=== PATIENT | female | born 1960 | race Caucasian/White ===

== ENCOUNTER 2019-04-23 13:18 | Inpatient (IN) | payer SELFPAY ==
[2019-04-23] MEDS ORDERED: KETOROLAC TROMETHAMINE INJ/PF 30 MG/1 ML SDV IV ONE (13:57)
[2019-04-23] MEDS ORDERED: ONDANSETRON HCL INJ/PF 4 MG/2 ML SDV IV ONE (13:58)
[2019-04-23] MEDS ORDERED: NORMAL SALINE 1000 ML 1,000 ML IV ONE (13:58)
--- NOTE | 2019-04-23 14:02 | ER Document Report ---
ED General - General Chief Complaint: Chest Pain Stated Complaint: CHEST PAIN/VOMITING/DIFFICULTY BREATHING Time Seen by Provider: 04/23/19 13:46 Primary Care Provider: ALFRED CHAPIN CNM [CERTIFIED NURSE PARTS EXPEDITER] - Follow up as needed - HPI Notes: 58-year-old female not currently under the care of physician taking no regular medications now presenting with 1 week history of cough generalized myalgias rachel sea vomiting and progressive weakness. He complains this morning of worsening cramping pain over her anterior chest area. She drove herself to the hospital. She notes that her has had similar symptoms over the past 1 week. She believes she may have run fever intermittently but has not taken her temperature at home. Onset 1 week ago. Duration persistent. Quality: Generalized cramping pain Location generalized. Pain most severe in the anterior chest area now. Relieving factors: None Severity: 8/10. Pertinent prior history: Patient is a former smoker. She denies any history of serious illnesses in the past. She says she does not believe she is ever had an EKG before today. - Related Data Allergies/Adverse Reactions: codeine [Codeine] Allergy (Verified 04/23/19 13:45) VOMITING Past Medical History - Social History Smoking Status: Former Smoker Cigarette use (# per day): No Chew tobacco use (# tins/day): No Frequency of alcohol use: None Drug Abuse: None Lives with: Family Family History: Reviewed & Not Pertinent - Medical History Medical History: Negative - Past Medical History Cardiac Medical History: Denies: Hx Coronary Artery Disease, Hx Heart Attack, Hx Hypertension Pulmonary Medical History: Denies: Hx Asthma, Hx Bronchitis, Hx COPD, Hx Pneumonia Neurological Medical History: Denies: Hx Cerebrovascular Accident, Hx Seizures Musculoskeletal Medical History: Denies Hx Arthritis Past Surgical History: Denies: Hx Hysterectomy, Hx Pacemaker Review of Systems - Review of Systems Notes: Constitutional: As per HPI. HENT: Negative for sore throat. Eyes: Negative for visual changes. Cardiovascular: As per HPI. Respiratory: Nonproductive cough. Gastrointestinal: Persistent nausea and vomiting. Genitourinary: Reports passing some blood in her urine a couple days ago.. Musculoskeletal: Diffuse musculoskeletal cramping. Skin: Negative for rash. Neurological: Headache and generalized weakness. 10 point ROS negative except as marked above and in HPI. Physical Exam - Vital signs Vitals: Pulse Ox 97 04/23/19 13:36 Notes: GENERAL: Somewhat obese middle-aged female who appears acutely ill and diaphoretic. She is warm to touch and review of vital signs shows that she is febrile. SKIN: Skin is pale. HEAD: Normocephalic atraumatic. EYES: Eyes appear mildly sunken consistent with dehydration. PERRLA. Conjunctivae and sclerae clear. EARS: CANALS AND TMS CLEAR. NOSE: CLEAR. MOUTH: Tacky mucosa. Good dentition. No stridor or edema. No drooling. Throat: Clear. NECK: Supple. No masses or thyromegaly. No adenopathy. Carotids 2+ without bruits. No JVD. BACK: Symmetrical without tenderness. CHEST: Diffuse anterior chest wall tenderness. Respirations unlabored. Scattered rhonchi bilaterally. HEART: Regular rhythm. No murmur gallop or rub. ABDOMEN: Mild epigastric tenderness without masses, organomegaly or rebound. Bowel sounds normally active. No bruits. GENITALIA: Deferred. EXTREMITIES: No edema. No calf tenderness. Cap refill less than 1.5 seconds. Dorsalis pedis and posterior tibial pulses 3+ and symmetrical. NEUROLOGICAL: GCS 15. Alert and oriented x3. Normal gait. Fluent speech. Cranial nerves II through XII intact. Sensorimotor and cerebellar normal. Normal tone. PSYCHIATRIC: Very anxious. Course - Re-evaluation Re-evalutation: 04/23/19 16:55 Patient was initially given normal saline IV bolus. Look suspicious for sepsis. I think left bundle branch block is probably old although I do not have any prior tracing for comparison. Her urine shows large amount of pyuria. White count was mildly elevated. Chemistries remarkable for hyperbilirubinemia. CT scan abdomen pelvis with contrast shows edema of the left kidney and perinephric stranding consistent with pyelonephritis. Patient empirically received IV Zosyn. She feels much better. Her lactate level is normal. I think this was an early sepsis. Findings have been discussed with Dr. Henson who will admit at this time. - Vital Signs Vital signs: Temp Pulse Resp BP Pulse Ox 102.8 F H 26 H 157/70 H 97 04/23/19 14:04 04/23/19 13:42 04/23/19 13:42 04/23/19 13:42 - Laboratory Result Diagrams: 04/23/19 13:48 04/23/19 13:48 Laboratory results interpreted by me: 04/23/19 04/23/19 04/23/19 13:48 13:48 14:10 WBC 12.6 H Lymphocytes % (Manual) 11 L Abs Neuts (Manual) 9.8 H Carbon Dioxide 20 L Est GFR (MDRD) Non-Af 58 L Glucose 158 H Total Bilirubin 4.2 H Direct Bilirubin 2.4 H Alkaline Phosphatase 152 H Urine Protein >=500 H Urine Blood LARGE H Urine Nitrite POSITIVE H Urine Bilirubin SMALL H Urine Urobilinogen 4.0 H Ur Leukocyte Esterase MODERATE H Urine Ascorbic Acid 40 H - Diagnostic Test Radiology reviewed: Reports reviewed - EKG Interpretation by Me EKG shows normal: Sinus rhythm Rate: Tachycardia [place]/QRS: LBBB Additional EKG results interpreted by me: 04/23/19 16:54 No old EKG for comparison. Discharge - Discharge Clinical Impression: Acute pyelonephritis Sepsis Qualifiers: Sepsis type: sepsis due to unspecified organism Sepsis acute organ dysfunction status: with acute organ dysfunction Severe sepsis shock status: without septic shock Condition: Good Disposition: ADMITTED INPATIENT Admitting Provider: [facility]ad (Hospitalist) Unit Admitted: Medical Floor Referrals: ALFRED CHAPIN CNM [CERTIFIED NURSE PARTS EXPEDITER] - Follow up as needed
--- NOTE | 2019-04-23 14:20 | RADIOLOGY REPORT (SQ) ---
EXAM DESCRIPTION: CHEST SINGLE VIEW COMPLETED DATE/TIME: 04/23/2019 2:03 pm REASON FOR STUDY: t1 cp COMPARISON: None. NUMBER OF VIEWS: One view. TECHNIQUE: Single frontal radiographic view of the chest acquired. LIMITATIONS: None. FINDINGS: LUNGS AND PLEURA: No opacities, masses or pneumothorax. No pleural effusion. MEDIASTINUM AND HILAR STRUCTURES: No masses. Contour normal. HEART AND VASCULAR STRUCTURES: Heart normal in size. Normal vasculature. BONES: No acute findings. HARDWARE: None in the chest. OTHER: No other significant finding. IMPRESSION: NO SIGNIFICANT RADIOGRAPHIC FINDING IN THE CHEST. TECHNICAL DOCUMENTATION: JOB ID: [id number] [employer]- All Rights Reserved Reading location - IP/workstation name: [email or web address]
[2019-04-23 14:28] LABS: ALBUMIN 3.5 g/dL (3.5-5.0); ALKALINE PHOSPHATASE 152 U/L (38-126); ANION GAP 14 (5-19); ASPARTATE AMINO TRANSFERASE 30 U/L (14-36); BILIRUBIN,DIRECT 2.4 mg/dL (0.0-0.4); BILIRUBIN,TOTAL 4.2 mg/dL (0.2-1.3); BLOOD UREA NITROGEN 17 mg/dL (7-20); CARBON DIOXIDE 20 mmol/L (22-30); CHLORIDE 105 mmol/L (98-107); CREATINE KINASE 44 U/L (30-135); GLUCOSE 158 mg/dL (75-110); POTASSIUM 4.2 mmol/L (3.6-5.0); TOTAL PROTEIN 6.6 g/dL (6.3-8.2)
[2019-04-23 14:29] LABS: HEMATOCRIT 36.4 % (36.0-47.0); PLATELET COUNT 233 10^3/uL (150-450); RED CELL DISTRIBUTION WIDTH 12.9 % (11.5-14.0); WHITE BLOOD COUNT 12.6 10^3/uL (4.0-10.5)
[2019-04-23 14:36] LABS: MEAN CORPUSCULAR HEMOGLOBIN 32.6 pg (27.0-33.4); MEAN CORPUSCULAR HGB CONC 35.8 g/dL (32.0-36.0); MEAN CORPUSCULAR VOLUME 91 fl (80-97); RED BLOOD COUNT 3.99 10^6/uL (3.72-5.28)
[2019-04-23 14:40] LABS: APPEARANCE,URINE CLOUDY; BILIRUBIN,URINE SMALL (NEGATIVE); COLOR,URINE AMBER; GLUCOSE, URINE NEGATIVE (NEGATIVE); KETONES,URINE NEGATIVE (NEGATIVE); LEUKOCYTE ESTERASE,URINE MODERATE (NEGATIVE); NITRITE,URINE POSITIVE (NEGATIVE); PROTEIN,URINE >=500 mg/dL (NEGATIVE); URINE SPECIFIC GRAVITY 1.022
[2019-04-23 14:46] LABS: ABSOLUTE LYMPHOCYTES# (MANUAL) 1.4 10^3/uL (0.5-4.7); ABSOLUTE MONOCYTES # (MANUAL) 1.4 10^3/uL (0.1-1.4); BASOPHILS % (MANUAL) 0 % (0-2); EOSINOPHILS % (MANUAL) 0 % (0-6); LYMPHOCYTES % (MANUAL) 11 % (13-45); MONOCYTES % (MANUAL) 11 % (3-13); SEGMENTED NEUTROPHILS % (MAN) 78 % (42-78); TOTAL CELLS COUNTED 100
[2019-04-23 14:50] LABS: PLATELET COMMENT ADEQUATE; ROULEAUX 1+
[2019-04-23 14:51] LABS: CREATINE KINASE MB < 0.22 ng/mL (<4.55); TROPONIN I < 0.012 ng/mL
[2019-04-23] MEDS ORDERED: PIPERACILLIN/TAZOBACTAM 3.375 GM VIAL IV ONE (15:16)
[2019-04-23 15:41] LABS: A TYPE INFLUENZA AG NEGATIVE (NEGATIVE); B INFLUENZA AG NEGATIVE (NEGATIVE)
--- NOTE | 2019-04-23 16:10 | RADIOLOGY REPORT (SQ) ---
EXAM DESCRIPTION: CT ABD/PELVIS WITH IV ONLY COMPLETED DATE/TIME: 04/23/2019 3:58 pm REASON FOR STUDY: RUQ pain, hematuria COMPARISON: None. TECHNIQUE: CT scan of the abdomen and pelvis performed using helical scanning technique with dynamic intravenous contrast injection. No oral contrast. Images reviewed with lung, soft tissue, and bone windows. Reconstructed coronal and sagittal MPR images reviewed. Delayed images for evaluation of the urinary system also acquired. All images stored on PACS. All CT scanners at this facility use dose modulation, iterative reconstruction, and/or weight based d osing when appropriate to reduce radiation dose to as low as reasonably achievable (ALARA). [facility]: Dose Right [facility]: CareDose [facility]: Dose Right [facility]: Teradose 4D [facility]: CEED Tech CONTRAST TYPE AND DOSE: 100 mL Omnipaque 350 iodinated contrast IV RENAL FUNCTION: GFR > 60. RADIATION DOSE: CT Rad equipment meets quality standard of care and radiation dose reduction techniq ues were employed. CTDIvol: 20.8 - 21.1 mGy. DLP: 2269 mGy-cm.. LIMITATIONS: None. FINDINGS: LOWER CHEST: No significant findings. No nodules or infiltrates. LIVER: Normal size. No masses. No dilated ducts. SPLEEN: Normal size. No focal lesions. PANCREAS: No masses. No significant calcifications. No adjacent inflammation or peripancreatic fluid collections. Pancreatic duct not dilated. GALLBLADDER: No identified stones by CT criteria. No inflammatory changes to suggest cholecystitis. ADRENAL GLANDS: No significant masses or asymmetry. RIGHT KIDNEY AND URETER: No solid masses. No significant calcifications. No hydronephrosis or hyd roureter. LEFT KIDNEY AND URETER: No solid masses. There is a heterogeneous nephrogram of the superior pole of the left kidney with adjacent perinephric fat stranding. No significant calcifications. No hydron ephrosis or hydroureter. AORTA AND VESSELS: No aneurysm. No dissection. Renal arteries, SMA, celiac without stenosis. RETROPERITONEUM: No retroperitoneal adenopathy, hemorrhage or masses. BOWEL AND PERITONEAL CAVITY: No masses or inflammatory changes. No free fluid or peritoneal masses. APPENDIX: Normal. PELVIS: No mass. No free fluid. Status post hysterectomy. There is thickening and edematous appear ance of the urinary bladder wall. ABDOMINAL WALL: No masses. No hernias. BONES: No significant or acute findings. OTHER: No other significant finding. IMPRESSION: There is a heterogeneous nephrogram of the superior pole of the left kidney with adjacen t perinephric fat stranding. Thickening and edematous appearance of the urinary bladder. Findings a re consistent with cystitis and pyelonephritis. TECHNICAL DOCUMENTATION: JOB ID: [id number] Quality ID # [id number]: Final reports with documentation of one or more dose reduction techniques (e.g., Au tomated exposure control, adjustment of the mA and/or kV according to patient size, use of iterative reconstruction technique) 2010 [employer]- All Rights Reserved Reading location - IP/workstation name: [email or web address]
--- NOTE | 2019-04-23 17:59 | PDOC H&P ---
History of Present Illness Patient complains of: chills, abdominal cramps History of Present Illness: SAVANNA PEREZ is a 58 year old female with no significant past medical history, not on home medications and does not see a regular PCP who came in because of chills and abdominal cramps. Patient says that she is been having on and off chills and subjective fever in the past week. She also reports associated dysuria and urinary frequency. She says that she also had urinary urgency and had a few episodes of slightly blood- tinged urine. She complained of hypogastric cramping as well. She also reported of associated body pains, myalgias and chest tightness. Past Medical History Cardiac Medical History: Denies: Coronary Artery Disease, Myocardial Infarction, Hypertension Pulmonary Medical History: Denies: Asthma, Bronchitis, Chronic Obstructive Pulmonary Disease (COPD), Pneumonia Neurological Medical History: Denies: Seizures Musculoskeltal Medical History: Denies: Arthritis Hematology: Denies: Anemia Past Surgical History Past Surgical History: Denies: Hysterectomy, Pacemaker Social History Lives with: Family Smoking Status: Former Smoker Family History Family History: Reviewed & Not Pertinent Parental Family History Reviewed: Yes - No premature CAD Children Family History Reviewed: No Sibling(s) Family History Reviewed.: No Medication/Allergy Allergies/Adverse Reactions: codeine [Codeine] Allergy (Verified 04/23/19 13:45) VOMITING Review of Systems All systems: reviewed and no additional remarkable complaints except as stated - As mentioned in HPI Physical Exam Vital Signs: Temp Pulse Resp BP Pulse Ox 102.8 F H 26 H 157/70 H 97 04/23/19 14:04 04/23/19 13:42 04/23/19 13:42 04/23/19 13:42 Intake & Output 04/22/19 04/23/19 04/24/19 06:59 06:59 06:59 Intake Total 1000 Balance 1000 Weight 247 lb 2.211 oz General appearance: PRESENT: no acute distress, well-developed, well-nourished Head exam: PRESENT: atraumatic, normocephalic Eye exam: PRESENT: conjunctiva pink, EOMI, PERRLA. ABSENT: scleral icterus Ear exam: PRESENT: normal external ear exam Mouth exam: PRESENT: moist, tongue midline Neck exam: ABSENT: carotid bruit, JVD, lymphadenopathy, thyromegaly Respiratory exam: PRESENT: clear to auscultation loco. ABSENT: rales, rhonchi, w heezes Cardiovascular exam: PRESENT: RRR. ABSENT: diastolic murmur, rubs, systolic murmur Pulses: PRESENT: normal dorsalis pedis pul GI/Abdominal exam: PRESENT: normal bowel sounds, soft, tenderness - Mild CVA tenderness. ABSENT: distended, guarding, mass, organolmegaly, rebound Rectal exam: PRESENT: deferred Extremities exam: PRESENT: full ROM. ABSENT: calf tenderness, clubbing, pedal edema Neurological exam: PRESENT: alert, awake, oriented to person, oriented to place, oriented to time, oriented to situation, CN II-XII grossly intact. ABSENT: motor sensory deficit Results Laboratory Results: 04/23/19 13:48 04/23/19 13:48 04/23/19 04/23/19 04/23/19 13:48 13:48 13:48 WBC 12.6 H RBC 3.99 Hgb 13.0 Hct 36.4 MCV 91 MCH 32.6 MCHC 35.8 RDW 12.9 Plt Count 233 Seg Neutrophils % Not Reportable Sodium 139.1 Potassium 4.2 Chloride 105 Carbon Dioxide 20 L Anion Gap 14 BUN 17 Creatinine 0.99 Est GFR ( Amer) > 60 Glucose 158 H Lactic Acid 1.1 Calcium 9.0 Total Bilirubin 4.2 H AST 30 Alkaline Phosphatase 152 H Total Protein 6.6 Albumin 3.5 Urine Color Urine Appearance Urine pH Ur Specific [place] Urine Protein Urine Glucose (UA) Urine Ketones Urine Blood Urine Nitrite Ur Leukocyte Esterase Urine WBC (Auto) Urine RBC (Auto) 04/23/19 14:10 WBC RBC Hgb Hct MCV MCH MCHC RDW Plt Count Seg Neutrophils % Sodium Potassium Chloride Carbon Dioxide Anion Gap BUN Creatinine Est GFR ( Amer) Glucose Lactic Acid Calcium Total Bilirubin AST Alkaline Phosphatase Total Protein Albumin Urine Color DEMETRICE Urine Appearance CLOUDY Urine pH 5.0 Ur Specific [place] 1.022 Urine Protein >=500 H Urine Glucose (UA) NEGATIVE Urine Ketones NEGATIVE Urine Blood LARGE H Urine Nitrite POSITIVE H Ur Leukocyte Esterase MODERATE H Urine WBC (Auto) >182 Urine RBC (Auto) 87 04/23/19 04/23/19 13:48 13:48 Creatine Kinase 44 CK-MB (CK-2) < 0.22 Troponin I < 0.012 Impressions: Chest X-Ray 04/23/19 13:36 IMPRESSION: NO SIGNIFICANT RADIOGRAPHIC FINDING IN THE CHEST. Abdomen/Pelvis CT 04/23/19 15:17 IMPRESSION: There is a heterogeneous nephrogram of the superior pole of the left kidney with adjacent perinephric fat stranding. Thickening and edematous appearance of the urinary bladder. Findings are consistent with cystitis and pyelonephritis. Assessment and Plan - Diagnosis (1) Sepsis Qualifiers: Sepsis type: sepsis due to unspecified organism Sepsis acute organ dysfunction status: with acute organ dysfunction Severe sepsis shock status: without septic shock Is this a current diagnosis for this admission?: Yes Plan: Secondary to acute pyelonephritis. Patient did present with tachycardia and fever. She also had leukocytosis and elevated liver enzymes. He was given IV here. We will continue IV fluids. We will have patient on Zosyn. Blood and urine cultures ordered. (2) Acute pyelonephritis Is this a current diagnosis for this admission?: Yes Plan: As per #1. - Time Time Spent with patient: 25-34 minutes
--- NOTE | 2019-04-23 17:59 | ADVANCED CARE ---
- Diagnosis (1) Acute pyelonephritis Diagnosis Current: Yes (2) Sepsis Diagnosis Current: Yes Resuscitation Status: Do Not Resuscitate Discussion: Discussed with patient and at bedside. Patient says that she is a DNR/DNI and does not want to receive chest compressions, defibrillation or mechanical ventilation if the need arises. She says that her , Migue is her surrogate medical decision maker.
[2019-04-23] MEDS: NORMAL SALINE 1000 ML 1,000 ML IV PRN (18:44)
[2019-04-23] MEDS: MORPHINE SULFATE 10 MG/ML INJ IV PRN (19:46)
[2019-04-23] MEDS: ACETAMINOPHEN 325 MG TABLET PO PRN (19:47)
[2019-04-23] MEDS ORDERED: INFLUENZA QUAD (6MOS+) 2019-20 VAC 0.5 ML SYR IM ONE (20:24)
[2019-04-23] MEDS: HEPARIN SOD (PORCINE) 5,000 UNIT/ML 1 ML VIAL SUBCUT SCH (21:46)
[2019-04-23] MEDS: PIPERACILLIN SODIUM/TAZOBACTAM 3.375 GM in NORMAL SALINE 100 ML IV SCH (21:47)
--- NOTE | 2019-04-24 00:02 | EKG REPORT ---
SEVERITY:- ABNORMAL ECG - SINUS TACHYCARDIA LEFT BUNDLE BRANCH BLOCK : Confirmed by: Lisa Cook 24-Apr-2019 00:02:31
[2019-04-24] MEDS: NORMAL SALINE 1000 ML 1,000 ML IV PRN ×3 (01:41→19:00)
[2019-04-24] MEDS: PIPERACILLIN SODIUM/TAZOBACTAM 3.375 GM in NORMAL SALINE 100 ML IV SCH ×4 (02:59→22:16)
[2019-04-24] MEDS: MORPHINE SULFATE 10 MG/ML INJ IV PRN ×2 (03:08→09:39)
[2019-04-24] MEDS: ACETAMINOPHEN 325 MG TABLET PO PRN ×2 (03:09→15:15)
[2019-04-24 06:02] LABS: ALBUMIN 2.7 g/dL (3.5-5.0); ALKALINE PHOSPHATASE 118 U/L (38-126); ANION GAP 10 (5-19); ASPARTATE AMINO TRANSFERASE 25 U/L (14-36); BILIRUBIN,DIRECT 2.6 mg/dL (0.0-0.4); BILIRUBIN,TOTAL 3.5 mg/dL (0.2-1.3); BLOOD UREA NITROGEN 17 mg/dL (7-20); CALCIUM 7.9 mg/dL (8.4-10.2); CARBON DIOXIDE 21 mmol/L (22-30); CHLORIDE 106 mmol/L (98-107); GLUCOSE 121 mg/dL (75-110); POTASSIUM 3.7 mmol/L (3.6-5.0); TOTAL PROTEIN 5.4 g/dL (6.3-8.2)
[2019-04-24 06:16] LABS: HEMATOCRIT 32.2 % (36.0-47.0); PLATELET COUNT 209 10^3/uL (150-450); RED CELL DISTRIBUTION WIDTH 13.4 % (11.5-14.0); WHITE BLOOD COUNT 10.6 10^3/uL (4.0-10.5)
[2019-04-24 06:17] LABS: MEAN CORPUSCULAR VOLUME 91 fl (80-97)
[2019-04-24 06:18] LABS: MEAN CORPUSCULAR HGB CONC 34.2 g/dL (32.0-36.0)
[2019-04-24 06:43] LABS: ABSOLUTE LYMPHOCYTES# (MANUAL) 1.8 10^3/uL (0.5-4.7); ABSOLUTE MONOCYTES # (MANUAL) 1.2 10^3/uL (0.1-1.4); BASOPHILS % (MANUAL) 1 % (0-2); EOSINOPHILS % (MANUAL) 0 % (0-6); LYMPHOCYTES % (MANUAL) 15 % (13-45); MONOCYTES % (MANUAL) 11 % (3-13); SEGMENTED NEUTROPHILS % (MAN) 71 % (42-78); TOTAL CELLS COUNTED 100
[2019-04-24 06:44] LABS: PLATELET COMMENT ADEQUATE; RBC MORPHOLOGY COMMENT NORMO-CYTIC/CHROMIC; TOXIC VACUOLATION PRESENT
[2019-04-24 06:45] LABS: RED BLOOD COUNT 3.55 10^6/uL (3.72-5.28)
[2019-04-24] MEDS: HEPARIN SOD (PORCINE) 5,000 UNIT/ML 1 ML VIAL SUBCUT SCH ×2 (09:39→22:16)
[2019-04-24] MEDS ORDERED: ONDANSETRON HCL INJ/PF 4 MG/2 ML SDV IV PRN (10:50)
[2019-04-24] MEDS ORDERED: MORPHINE SULFATE 10 MG/ML INJ IV PRN (11:00)
--- NOTE | 2019-04-24 14:34 | PDOC PROGRESS REPORT ---
Subjective Progress Note for:: 04/24/19 Subjective:: This is a 58-year-old female who was admitted for sepsis secondary to acute pyelonephritis. No acute event overnight. This morning, she still complained of occasional abdominal cramping and CVA tenderness. Denies chest pain or shortness of breath. She had a fever of 101.7 last night. Reason For Visit: SEPSIS,ACUTE PYELONEPHRITIS Physical Exam Vital Signs: Temp Pulse Resp BP Pulse Ox 98.0 F 89 18 114/60 97 04/24/19 12:05 04/24/19 12:05 04/24/19 12:05 04/24/19 12:05 04/24/19 12:05 Intake & Output 04/23/19 04/24/19 04/25/19 06:59 06:59 06:59 Intake Total 2741 1100 Output Total 100 Balance 2641 1100 Weight 216 lb 7.903 oz General appearance: PRESENT: no acute distress, well-developed, well-nourished Head exam: PRESENT: atraumatic, normocephalic Eye exam: PRESENT: conjunctiva pink, EOMI, PERRLA. ABSENT: scleral icterus Ear exam: PRESENT: normal external ear exam Mouth exam: PRESENT: moist, tongue midline Neck exam: ABSENT: carotid bruit, JVD, lymphadenopathy, thyromegaly Respiratory exam: PRESENT: clear to auscultation loco. ABSENT: rales, rhonchi, wheezes Cardiovascular exam: PRESENT: RRR. ABSENT: diastolic murmur, rubs, systolic murmur Pulses: PRESENT: normal dorsalis pedis pul GI/Abdominal exam: PRESENT: normal bowel sounds, soft, tenderness - +CVA te nderness. ABSENT: distended, guarding, mass, organolmegaly, rebound Rectal exam: PRESENT: deferred Extremities exam: PRESENT: full ROM. ABSENT: calf tenderness, clubbing, pedal edema Neurological exam: PRESENT: alert, awake, oriented to person, oriented to place, oriented to time, oriented to situation, CN II-XII grossly intact. ABSENT: motor sensory deficit Results Laboratory Results: 04/24/19 04:24 04/24/19 04:24 04/23/19 04/23/19 04/23/19 13:48 13:48 13:48 WBC 12.6 H RBC 3.99 Hgb 13.0 Hct 36.4 MCV 91 MCH 32.6 MCHC 35.8 RDW 12.9 Plt Count 233 Seg Neutrophils % Not Reportable Sodium 139.1 Potassium 4.2 Chloride 105 Carbon Dioxide 20 L Anion Gap 14 BUN 17 Creatinine 0.99 Est GFR ( Amer) > 60 Glucose 158 H Lactic Acid 1.1 Calcium 9.0 Total Bilirubin 4.2 H AST 30 Alkaline Phosphatase 152 H Total Protein 6.6 Albumin 3.5 Urine Color Urine Appearance Urine pH Ur Specific [place] Urine Protein Urine Glucose (UA) Urine Ketones Urine Blood Urine Nitrite Ur Leukocyte Esterase Urine WBC (Auto) Urine RBC (Auto) 04/23/19 04/24/19 04/24/19 14:10 04:24 04:24 WBC 10.6 H RBC 3.55 L Hgb 11.0 L Hct 32.2 L MCV 91 MCH 31.0 MCHC 34.2 RDW 13.4 Plt Count 209 Seg Neutrophils % Not Reportable Sodium 137.4 Potassium 3.7 Chloride 106 Carbon Dioxide 21 L Anion Gap 10 BUN 17 Creatinine 1.02 Est GFR ( Amer) > 60 Glucose 121 H Lactic Acid Calcium 7.9 L Total Bilirubin 3.5 H AST 25 Alkaline Phosphatase 118 Total Protein 5.4 L Albumin 2.7 L Urine Color DEMETRICE Urine Appearance CLOUDY Urine pH 5.0 Ur Specific [place] 1.022 Urine Protein >=500 H Urine Glucose (UA) NEGATIVE Urine Ketones NEGATIVE Urine Blood LARGE H Urine Nitrite POSITIVE H Ur Leukocyte Esterase MODERATE H Urine WBC (Auto) >182 Urine RBC (Auto) 87 04/23/19 13:48 Blood Blood Culture (PCR) - Final 04/23/19 04/23/19 04/23/19 13:48 13:48 17:22 Creatine Kinase 44 CK-MB (CK-2) < 0.22 Troponin I < 0.012 < 0.012 Impressions: Chest X-Ray 04/23/19 13:36 IMPRESSION: NO SIGNIFICANT RADIOGRAPHIC FINDING IN THE CHEST. Abdomen/Pelvis CT 04/23/19 15:17 IMPRESSION: There is a heterogeneous nephrogram of the superior pole of the left kidney with adjacent perinephric fat stranding. Thickening and edematous appearance of the urinary bladder. Findings are consistent with cystitis and pyelonephritis. Assessment and Plan - Diagnosis (1) Sepsis Qualifiers: Sepsis type: sepsis due to unspecified organism Sepsis acute organ dysfunction status: with acute organ dysfunction Severe sepsis shock status: without septic shock Is this a current diagnosis for this admission?: Yes Plan: Secondary to acute pyelonephritis. Patient did present with tachycardia and fever. She also had leukocytosis and elevated liver enzymes. C Continue IV fluids. Continue Zosyn. Blood cultures growing gram-positive rods 1/2. Urine cultures growing gram-negative rods. (2) Acute pyelonephritis Is this a current diagnosis for this admission?: Yes Plan: As per #1. - Time Time Spent with patient: 25-34 minutes
[2019-04-24] MEDS: KETOROLAC TROMETHAMINE INJ/PF 30 MG/1 ML SDV IV PRN (23:47)
[2019-04-25] MEDS: PIPERACILLIN SODIUM/TAZOBACTAM 3.375 GM in NORMAL SALINE 100 ML IV SCH ×3 (02:29→15:23)
[2019-04-25] MEDS: NORMAL SALINE 1000 ML 1,000 ML IV PRN ×2 (05:56→15:22)
[2019-04-25 07:37] LABS: HEPATITS B SURFACE ANTIGEN Negative (Negative)
[2019-04-25] MEDS: HEPARIN SOD (PORCINE) 5,000 UNIT/ML 1 ML VIAL SUBCUT SCH ×2 (09:47→21:42)
[2019-04-25 10:54] LABS: HEPATITIS C VIRUS ANTIBODY <0.1 s/co ratio (0.0-0.9)
--- NOTE | 2019-04-25 11:45 | RADIOLOGY REPORT (SQ) ---
EXAM DESCRIPTION: CHEST SINGLE VIEW COMPLETED DATE/TIME: 04/25/2019 11:36 am REASON FOR STUDY: shortness of breath COMPARISON: 04/23/2019 EXAM PARAMETERS: NUMBER OF VIEWS: One view. TECHNIQUE: Single frontal radiographic view of the chest acquired. RADIATION DOSE: NA LIMITATIONS: None. FINDINGS: LUNGS AND PLEURA: No opacities, masses or pneumothorax. No pleural effusion. MEDIASTINUM AND HILAR STRUCTURES: No masses. Contour normal. HEART AND VASCULAR STRUCTURES: Heart size is borderline. No pulmonary edema. BONES: No acute findings. HARDWARE: None in the chest. OTHER: No other significant finding. IMPRESSION: Borderline cardiomegaly without karina pulmonary edema. TECHNICAL DOCUMENTATION: JOB ID: [id number] [employer]- All Rights Reserved Reading location - IP/workstation name: [email or web address]
--- NOTE | 2019-04-25 15:21 | RADIOLOGY REPORT (SQ) ---
EXAM DESCRIPTION: NM LUNG VENT/PERF SCAN COMPLETED DATE/TIME: 04/25/2019 3:08 pm REASON FOR STUDY: shortness of breath COMPARISON: Chest radiograph, 04/25/2019 RADIONUCLIDE AND DOSE: 5.29 millicuries TC-99m MAA Intravenous 30.2 millicuries TC-99m DTPA Inhaled aerosol TECHNIQUE: Eight views of the lungs acquired post ventilation of DTPA aerosol. Eight matching views of the lungs acquired following injection of MAA. LIMITATIONS: None. FINDINGS: VENTILATION: Mild bronchial clumping. Otherwise symmetric and homogeneous distribution of DTPA aerosol during ventilatory phase. No significant areas of photopenia. PERFUSION: Perfusion images with normal homogenous activity and no wedge-shaped or segmental defects. No ventilation-perfusion mismatches. OTHER: Cardiomegaly. IMPRESSION: Very low probability for pulmonary embolism by modified PIOPED criteria (PE absent). TECHNICAL DOCUMENTATION: JOB ID: [id number] [employer]- All Rights Reserved Reading location - IP/workstation name: [email or web address]
[2019-04-25] MEDS: KETOROLAC TROMETHAMINE INJ/PF 30 MG/1 ML SDV IV PRN (15:35)
--- NOTE | 2019-04-25 16:16 | PDOC PROGRESS REPORT ---
Subjective Progress Note for:: 04/25/19 Subjective:: This is a 58-year-old female who was admitted for sepsis secondary to acute pyelonephritis. 04/24: This morning, she still complained of occasional abdominal cramping and CVA tenderness. Denies chest pain or shortness of breath. She had a fever of 101.7 last night. 04/25: She complained of transient palpitations and shortness of breath early this morning associated with tachycardia. Otherwise no other acute event overnight. No desaturation. No recurrence of fever. She says that overall she feels much better today. She says her abdominal pain and CVA tenderness have significantly improved. Reason For Visit: SEPSIS,ACUTE PYELONEPHRITIS Physical Exam Vital Signs: Temp Pulse Resp BP Pulse Ox 98.2 F 80 17 143/56 H 99 04/25/19 12:54 04/25/19 13:33 04/25/19 12:54 04/25/19 12:54 04/25/19 12:54 Intake & Output 04/24/19 04/25/19 04/26/19 06:59 06:59 06:59 Intake Total 2741 3865 1100 Output Total 100 700 Balance 2641 3165 1100 Weight 216 lb 7.903 oz 222 lb 7.143 oz General appearance: PRESENT: no acute distress, well-developed, well-nourished Head exam: PRESENT: atraumatic, normocephalic Eye exam: PRESENT: conjunctiva pink, EOMI, PERRLA. ABSENT: scleral icterus Ear exam: PRESENT: normal external ear exam Mouth exam: PRESENT: moist, tongue midline Neck exam: ABSENT: carotid bruit, JVD, lymphadenopathy, thyromegaly Respiratory exam: PRESENT: clear to auscultation loco. ABSENT: rales, rhonchi, wheezes Cardiovascular exam: PRESENT: RRR. ABSENT: diastolic murmur, rubs, systolic murmur Pulses: PRESENT: normal dorsalis pedis pul GI/Abdominal exam: PRESENT: normal bowel sounds, soft. ABSENT: distended, guarding, mass, organolmegaly, rebound, tenderness Rectal exam: PRESENT: deferred Extremities exam: PRESENT: full ROM. ABSENT: calf tenderness, clubbing, pedal edema Neurological exam: PRESENT: alert, awake, oriented to person, oriented to place, oriented to time, oriented to situation, CN II-XII grossly intact. ABSENT: motor sensory deficit Results Laboratory Results: 04/24/19 04:24 04/24/19 04:24 04/23/19 13:48 Blood Blood Culture (PCR) - Final 04/23/19 13:48 Blood Blood Culture - Final Bacillus Sp. Not Anthracis 04/23/19 14:10 Clean Catch Midstream Urine Culture - Final Escherichia Coli 04/23/19 04/23/19 04/23/19 13:48 13:48 17:22 Creatine Kinase 44 CK-MB (CK-2) < 0.22 Troponin I < 0.012 < 0.012 Impressions: Abdomen/Pelvis CT 04/23/19 15:17 IMPRESSION: There is a heterogeneous nephrogram of the superior pole of the left kidney with adjacent perinephric fat stranding. Thickening and edematous appearance of the urinary bladder. Findings are consistent with cystitis and pyelonephritis. Chest X-Ray 04/25/19 00:00 IMPRESSION: Borderline cardiomegaly without karina pulmonary edema. Lung Scan-VQ NM 04/25/19 00:00 IMPRESSION: Very low probability for pulmonary embolism by modified PIOPED criteria (PE absent). Assessment and Plan - Diagnosis (1) Sepsis Qualifiers: Sepsis type: sepsis due to unspecified organism Sepsis acute organ dysfunc tion status: with acute organ dysfunction Severe sepsis shock status: without septic shock Is this a current diagnosis for this admission?: Yes Plan: Secondary to acute pyelonephritis. Patient did present with tachycardia and fever. She also had leukocytosis and elevated liver enzymes. 04/25: Improving. Reduce IV fluids to 50 cc/h. Urine culture grew pansensitive E. coli. De-escalate Zosyn to Rocephin. (2) Acute pyelonephritis Is this a current diagnosis for this admission?: Yes Plan: As per #1. - Time Time Spent with patient: 25-34 minutes
[2019-04-25] MEDS ORDERED: NORMAL SALINE 1000 ML 1,000 ML IV PRN (16:17)
[2019-04-26] MEDS ORDERED: CEFTRIAXONE 1 GM/D5W RTU 1 GM/50 ML RTUPB IV SCH (10:00)
[2019-04-26] MEDS: HEPARIN SOD (PORCINE) 5,000 UNIT/ML 1 ML VIAL SUBCUT SCH (10:08)
[2019-04-26 10:32] VITALS: BP 126/63
--- NOTE | 2019-04-26 17:35 | PDOC DISCHARGE SUMMARY ---
Impression - Admit/DC Date/PCP Admission Date/Primary Care Provider: 04/23/19 17:16 Discharge Date: 04/26/19 - Discharge Diagnosis (1) Sepsis Is this a current diagnosis for this admission?: Yes (2) Acute pyelonephritis Is this a current diagnosis for this admission?: Yes - Additional Information Resuscitation Status: Do Not Resuscitate Discharge Diet: As Tolerated Discharge Activity: Activity As Tolerated Referrals: [facility] [Outside] (please call sunday for an appointment) Prescriptions: Amoxicillin/Potassium Clav [Augmentin 500-125 Tablet] 1 each PO Q8H 7 Days #21 tablet Home Medications: Amoxicillin/Potassium Clav [Augmentin 500-125 Tablet] 1 each PO Q8H 7 Days #21 tablet 04/26/19 History of Present Illiness History of Present Illness: SAVANNA PEREZ is a 58 year old female with no significant past medical history, not on home medications and does not see a regular PCP who came in because of chills and abdominal cramps. Patient says that she is been having on and off chills and subjective fever in the past week. She also reports associated dysuria and urinary frequency. She says that she also had urinary urgency and had a few episodes of slightly blood- tinged urine. She complained of hypogastric cramping as well. She also reported of associated body pains, myalgias and chest tightness. Hospital Course Hospital Course: This is a 58-year-old female who was admitted for sepsis secondary to acute pyelonephritis. Patient was started on IV antibiotics and IV fluids. She did significantly improved to above treatments. She did have a few runs of shortness of breath, chest pain and tachycardia. Troponins were negative. VQ scan was negative for PE. Likely related to sepsis. She was advised to follow-up with Dr. More for outpatient stress testing. She returned to her baseline. Urine culture grew pansensitive E. coli. She will be discharged on Augmentin. Physical Exam Vital Signs: Temp Pulse Resp BP Pulse Ox 98.9 F 85 18 126/63 H 99 04/26/19 10:28 04/26/19 10:28 04/26/19 10:28 04/26/19 10:28 04/26/19 10:28 Intake & Output 04/25/19 04/26/19 04/27/19 06:59 06:59 06:59 Intake Total 7457 3009 Output Total 700 400 Balance 3165 1959 Weight 222 lb 7.143 oz 222 lb 3.615 oz General appearance: PRESENT: no acute distress, well-developed, well-nourished Head exam: PRESENT: atraumatic, normocephalic Eye exam: PRESENT: conjunctiva pink, EOMI, PERRLA. ABSENT: scleral icterus Ear exam: PRESENT: normal external ear exam Mouth exam: PRESENT: moist, tongue midline Neck exam: ABSENT: carotid bruit, JVD, lymphadenopathy, thyromegaly Respiratory exam: PRESENT: clear to auscultation loco. ABSENT: rales, rhonchi, wheezes Cardiovascular exam: PRESENT: RRR. ABSENT: diastolic murmur, rubs, systolic murmur Pulses: PRESENT: normal dorsalis pedis pul GI/Abdominal exam: PRESENT: normal bowel sounds, soft. ABSENT: distended, guarding, mass, organolmegaly, rebound, tenderness Rectal exam: PRESENT: deferred Extremities exam: PRESENT: full ROM. ABSENT: calf tenderness, clubbing, pedal edema Neurological exam: PRESENT: alert, awake, oriented to person, oriented to place, oriented to time, oriented to situation, CN II-XII grossly intact. ABSENT: motor sensory deficit Results Laboratory Results: WBC 10.6 10^3/uL (4.0-10.5) H 04/24/19 04:24 RBC 3.55 10^6/uL (3.72-5.28) L 04/24/19 04:24 Hgb 11.0 g/dL (12.0-15.5) L 04/24/19 04:24 Hct 32.2 % (36.0-47.0) L 04/24/19 04:24 MCV 91 fl (80-97) 04/24/19 04:24 MCH 31.0 pg (27.0-33.4) 04/24/19 04:24 MCHC 34.2 g/dL (32.0-36.0) 04/24/19 04:24 RDW 13.4 % (11.5-14.0) 04/24/19 04:24 Plt Count 209 10^3/uL (150-450) 04/24/19 04:24 Lymph % (Auto) Not Reportable 04/24/19 04:24 [place] % (Auto) Not Reportable 04/24/19 04:24 Eos % (Auto) Not Reportable 04/24/19 04:24 Baso % (Auto) Not Reportable 04/24/19 04:24 Absolute Neuts (auto) Not Reportable 04/24/19 04:24 Absolute Lymphs (auto) Not Reportable 04/24/19 04:24 Absolute Monos (auto) Not Reportable 04/24/19 04:24 Absolute Eos (auto) Not Reportable 04/24/19 04:24 Absolute Basos (auto) Not Reportable 04/24/19 04:24 Total Counted 100 04/24/19 04:24 Seg Neutrophils % Not Reportable 04/24/19 04:24 Seg Neuts % (Manual) 71 % (42-78) 04/24/19 04:24 Lymphocytes % (Manual) 15 % (13-45) 04/24/19 04:24 Atypical Lymphs % 2 % (0) 04/24/19 04:24 Monocytes % (Manual) 11 % (3-13) 04/24/19 04:24 Eosinophils % (Manual) 0 % (0-6) 04/24/19 04:24 Basophils % (Manual) 1 % (0-2) 04/24/19 04:24 Abs Neuts (Manual) 7.5 10^3/uL (1.7-8.2) 04/24/19 04:24 Abs Lymphs (Manual) 1.8 10^3/uL (0.5-4.7) 04/24/19 04:24 Abs Monocytes (Manual) 1.2 10^3/uL (0.1-1.4) 04/24/19 04:24 Absolute Eos (Manual) 0.0 10^3/uL (0.0-0.6) 04/24/19 04:24 Abs Basophils (Manual) 0.1 10^3/uL (0.0-0.2) 04/24/19 04:24 Toxic Vacuolation PRESENT 04/24/19 04:24 Platelet Comment ADEQUATE 04/24/19 04:24 Rouleaux 1+ 04/23/19 13:48 RBC Morph Comment NORMO-CYTIC/CHROMIC 04/24/19 04:24 Sodium 137.4 mmol/L (137-145) 04/24/19 04:24 Potassium 3.7 mmol/L (3.6-5.0) 04/24/19 04:24 Chloride 106 mmol/L (98-107) 04/24/19 04:24 Carbon Dioxide 21 mmol/L (22-30) L 04/24/19 04:24 Anion Gap 10 (5-19) 04/24/19 04:24 BUN 17 mg/dL (7-20) 04/24/19 04:24 Creatinine 1.02 mg/dL (0.52-1.25) 04/24/19 04:24 Est GFR ( Amer) > 60 (>60) 04/24/19 04:24 Est GFR (MDRD) Non-Af 56 (>60) L 04/24/19 04:24 Glucose 121 mg/dL (75-110) H 04/24/19 04:24 Lactic Acid 1.1 mmol/L (0.7-2.1) 04/23/19 13:48 Calcium 7.9 mg/dL (8.4-10.2) L 04/24/19 04:24 Total Bilirubin 3.5 mg/dL (0.2-1.3) H 04/24/19 04:24 Direct Bilirubin 2.6 mg/dL (0.0-0.4) H 04/24/19 04:24 Neonat Total Bilirubin Not Reportable 04/24/19 04:24 Neonat Direct Bilirubin Not Reportable 04/24/19 04:24 Neonat Indirect Bili Not Reportable 04/24/19 04:24 AST 25 U/L (14-36) 04/24/19 04:24 ALT 34 U/L (<35) 04/24/19 04:24 Alkaline Phosphatase 118 U/L (38-126) 04/24/19 04:24 Creatine Kinase 44 U/L (30-135) 04/23/19 13:48 CK-MB (CK-2) < 0.22 ng/mL (<4.55) 04/23/19 13:48 Troponin I < 0.012 ng/mL 04/23/19 17:22 Total Protein 5.4 g/dL (6.3-8.2) L 04/24/19 04:24 Albumin 2.7 g/dL (3.5-5.0) L 04/24/19 04:24 Urine Color DEMETRICE 04/23/19 14:10 Urine Appearance CLOUDY 04/23/19 14:10 Urine pH 5.0 (5.0-9.0) 04/23/19 14:10 Ur Specific [place] 1.022 04/23/19 14:10 Urine Protein >=500 mg/dL (NEGATIVE) H 04/23/19 14:10 Urine Glucose (UA) NEGATIVE mg/dL (NEGATIVE) 04/23/19 14:10 Urine Ketones NEGATIVE mg/dL (NEGATIVE) 04/23/19 14:10 Urine Blood LARGE (NEGATIVE) H 04/23/19 14:10 Urine Nitrite POSITIVE (NEGATIVE) H 04/23/19 14:10 Urine Bilirubin SMALL (NEGATIVE) H 04/23/19 14:10 Urine Urobilinogen 4.0 mg/dL (<2.0) H 04/23/19 14:10 Ur Leukocyte Esterase MODERATE (NEGATIVE) H 04/23/19 14:10 Urine WBC (Auto) >182 /HPF 04/23/19 14:10 Urine RBC (Auto) 87 /HPF 04/23/19 14:10 Urine Bacteria (Auto) 3+ /HPF 04/23/19 14:10 Urine WBC Clumps MANY /HPF 04/23/19 14:10 Squamous Epi Cells Auto 1 /HPF 04/23/19 14:10 U Non-Squamous Epis Auto 2 /HPF 04/23/19 14:10 Urine Mucus (Auto) MANY /LPF 04/23/19 14:10 Urine Ascorbic Acid 40 (NEGATIVE) H 04/23/19 14:10 Hepatitis A IgM Ab Negative (Negative) 04/24/19 04:24 Hep Bs Antigen Negative (Negative) 04/24/19 04:24 Hep B Core IgM Ab Negative (Negative) 04/24/19 04:24 Hepatitis C Antibody <0.1 s/co ratio (0.0-0.9) 04/24/19 04:24 HIV 1&2 Antibody NEGATIVE (NEGATIVE) 04/25/19 12:57 Influenza A (Rapid) NEGATIVE (NEGATIVE) 04/23/19 14:10 Influenza B (Rapid) NEGATIVE (NEGATIVE) 04/23/19 14:10 04/23/19 04/23/19 13:48 17:22 CK-MB (CK-2) < 0.22 Troponin I < 0.012 < 0.012 Impressions: Chest X-Ray 04/23/19 13:36 IMPRESSION: NO SIGNIFICANT RADIOGRAPHIC FINDING IN THE CHEST. Abdomen/Pelvis CT 04/23/19 15:17 IMPRESSION: There is a heterogeneous nephrogram of the superior pole of the left kidney with adjacent perinephric fat stranding. Thickening and edematous appearance of the urinary bladder. Findings are consistent with cystitis and pyelonephritis. Chest X-Ray 04/25/19 00:00 IMPRESSION: Borderline cardiomegaly without karina pulmonary edema. Lung Scan-VQ NM 04/25/19 00:00 IMPRESSION: Very low probability for pulmonary embolism by modified PIOPED criteria (PE absent). Stroke Is this a Stroke Patient?: No Acute Heart Failure - Is this a Heart Failure Patient?: No
== END 2019-04-26 13:46 | disposition home or self-care (01) | DRG 872 ==
LOC: ER 13:18 → UNDOADMIN 17:10 → EH 17:10 → 4N 19:16
PROVIDERS: ADMIT Internal Medicine; ATTEND Internal Medicine
DX: A41.9 Sepsis, unspecified organism (principal); N10 Acute pyelonephritis; B96.20 Unspecified Escherichia coli [E. coli] as the cause of diseases classified elsewhere; I44.7 Left bundle-branch block, unspecified; Z87.891 Personal history of nicotine dependence; Z88.6 Allergy status to analgesic agent
CPT/HCPCS: 36415; 71045; 74177; 78582; 80053; 80074; 81001; 82550; 82553; 83605; 84484; 85025; 86701; 87040; 87077; 87086; 87088; 87150; 87186; 87804; 93005; 93010; 96361; 96365; 96375; 99285; A9540; A9567; J0696; J1644; J1885; J2270; J2405; J2543; J3490; J7030; J7050; Q9969